=== PATIENT | male | born 1975 | race Native Hawaiian/Other Pacific Islander ===

== ENCOUNTER 2020-04-28 16:11 | Outpatient (CLI) | payer OTHER | END 2020-04-28 20:02 | disposition home or self-care (01) | LOC: INF 16:11 | PROVIDERS: ATTEND Internal Medicine | DX: Z23 Encounter for immunization (principal) | CPT/HCPCS: 96372 ==

== ENCOUNTER 2020-05-18 11:14 | Outpatient (CLI) | payer OTHER | END 2020-05-18 21:14 | disposition home or self-care (01) | LOC: INF 11:14 | PROVIDERS: ATTEND Internal Medicine | DX: Z23 Encounter for immunization (principal) | CPT/HCPCS: 96372 ==